=== PATIENT | male | born 1940 | race Caucasian/White ===

== ENCOUNTER 2017-07-10 15:59 | Inpatient (IN) | payer OTHER ==
[~2017-07-10] VITALS: Ht 182.9 cm; Wt 99.3 kg
[2017-07-10] MEDS ORDERED: SODIUM CHLORIDE 0.9% 1,000 ML IV ONE ×2 (16:06→16:15)
[2017-07-10] MEDS ORDERED: PANTOPRAZOLE 80 MG in SODIUM CHL 0.9% 60 ML IV ONE (16:15)
[2017-07-10 17:32] LABS: Basophils # (auto) 0 uL; Basophils % (auto) 0.2 % (0.0-2.0); Eosinophils # (auto) 0 uL; Eosinophils % (auto) 0.4 % (0.0-7.0); Hematocrit 41.9 % (41.0-53.0); Hemoglobin 13.7 g/dL (13.5-17.5); Lymphocytes # (auto) 0.5 uL; Lymphocytes % (auto) 9.5 % (10.0-50.0); Mean Corpuscular Hemoglobin 30.8 pg (28.0-32.0); Mean Corpuscular Hgb Conc. 32.6 g/dL (32.0-36.0); Mean Corpuscular Volume 94.4 fL (80.0-100.0); Mean Platelet Volume 7.5 fL (6.9-10.8); Monocytes # (auto) 0.4 uL; Monocytes % (auto) 7.9 % (0.0-12.0); Neutrophils # (auto) 4.6 uL; Platelet Count (auto) 197 10^3/uL (140-450); Red Cell Distribution Width 17.7 % (11.8-14.3); White Blood Cell 5.6 10^3/uL (4.4-10.8)
[2017-07-10 17:45] LABS: INR 1.12 (0.9-1.15); Partial Thromboplastin Time 25.4 sec (22.64-33.71); Prothrombin Time 12.2 sec (9.37-12.3)
[2017-07-10 17:52] LABS: Albumin 2.4 g/dL (3.4-5.0); Alkaline Phosphatase 57 U/L (45-117); Anion Gap 8 (5-15); Aspartate Aminotransferase 14 U/L (15-37); BUN/Creatinine Ratio 37.1; Bilirubin, Total 0.7 mg/dL (0.2-1.0); Blood Urea Nitrogen 43 mg/dL (7-18); Carbon Dioxide 26 mmol/L (21-32); Chloride 107 mmol/L (98-107); GFR African American 79 mL/min; GFR Non-African American 65 mL/min; Glucose 110 mg/dL (74-106); Potassium 3.8 mmol/L (3.5-5.1); Sodium 141 mmol/L (136-145); Total Protein 5.7 g/dL (6.4-8.2)
[2017-07-10] MEDS ORDERED: PANTOPRAZOLE 40 MG/10 ML VIAL IV ONE (18:00)
[2017-07-10] MEDS ORDERED: LORazepam 2MG/ML-1ML VIAL IV PRN (18:00)
[2017-07-10] MEDS ORDERED: NITROGLYCERIN 0.4 MG SL TAB SL PRN (18:00)
[2017-07-10] MEDS ORDERED: MORPHINE SULF INJ 2 MG/ML SYRINGE 1ML IV PRN ×3 (18:00)
[2017-07-10] MEDS ORDERED: THIAMINE HCL 100 MG/ML 2ML VIAL IV ONE (18:00)
[2017-07-10] MEDS ORDERED: IOHEXOL 300 MG/ML 100ML BOTTLE IJ ONE (18:01)
[2017-07-10] MEDS ORDERED: LEVOFLOXACIN 500MG 100 ML IV ONE (18:15)
[2017-07-10 18:39] LABS: B-Type Natriuretic Peptide 34.9 pg/mL (0-100); Temperature: 22.7 C (20.0-25.0)
[2017-07-10 18:49] LABS: Hemoglobin 8.3 g/dL (13.5-17.5)
[2017-07-10] MEDS: SODIUM CHLORIDE 0.9% 1,000 ML IV SCH (22:34)
[2017-07-10] MEDS: metroNIDAZOLE 500MG/100ML 100 ML IV SCH (22:34)
[2017-07-11] VITALS (12 sets, daily range): BP systolic 87–141; BP diastolic 40–81
[2017-07-11 00:45] LABS: Hematocrit 25.8 % (41.0-53.0); Hemoglobin 8.5 g/dL (13.5-17.5)
[2017-07-11] MEDS: SODIUM CHLORIDE 0.9% 1,000 ML IV SCH ×4 (03:31→22:42)
[2017-07-11] MEDS: metroNIDAZOLE 500MG/100ML 100 ML IV SCH ×3 (05:52→22:10)
[2017-07-11] MEDS: PROMETHAZINE HCL 25 MG/ML 1ML IV PRN (06:40)
[2017-07-11 06:41] LABS: Hematocrit 21.3 % (41.0-53.0); Hemoglobin 7.1 g/dL (13.5-17.5)
[2017-07-11] MEDS ORDERED: PANTOPRAZOLE 40 MG/10 ML VIAL IV SCH (10:00)
[2017-07-11] MEDS ORDERED: OCTREOTIDE ACETATE 500 MCG in SODIUM CHL 0.9% 99 ML IV SCH (10:15)
[2017-07-11] MEDS: PANTOPRAZOLE 40 MG/10 ML VIAL IV SCH ×2 (10:35→22:10)
[2017-07-11] MEDS: THIAMINE HCL 100 MG/ML 2ML VIAL IV SCH (10:35)
[2017-07-11] MEDS: LEVOFLOXACIN 500MG 100 ML IV SCH (10:56)
[2017-07-11] MEDS ORDERED: SODIUM CHLORIDE LOCK 10 ML ONE (11:30)
[2017-07-11] MEDS ORDERED: fentaNYL CITRATE 100 MCG/2 ML VL ONE (11:31)
[2017-07-11] MEDS ORDERED: diphenhdrAMINE HCL 50 MG/1 ML VL ONE (11:31)
[2017-07-11] MEDS ORDERED: MIDAZOLAM HCL 5 MG/ML-1ML VIAL ONE (11:31)
[2017-07-11] MEDS ORDERED: fentaNYL CITRATE 100 MCG/2 ML VL IV ONE ×2 (15:18→15:24)
[2017-07-11] MEDS ORDERED: MIDAZOLAM HCL 5 MG/ML-1ML VIAL IV ONE ×2 (15:18→15:24)
[2017-07-11] MEDS ORDERED: diphenhdrAMINE HCL 50 MG/1 ML VL IV ONE (15:18)
[2017-07-11 17:45] LABS: Basophils # (auto) 0.1 uL; Basophils % (auto) 0.9 % (0.0-2.0); Eosinophils # (auto) 0 uL; Eosinophils % (auto) 0.6 % (0.0-7.0); Hematocrit 30.7 % (41.0-53.0); Hemoglobin 10.4 g/dL (13.5-17.5); Lymphocytes # (auto) 0.7 uL; Mean Corpuscular Hemoglobin 30.7 pg (28.0-32.0); Mean Corpuscular Hgb Conc. 33.9 g/dL (32.0-36.0); Mean Corpuscular Volume 90.5 fL (80.0-100.0); Mean Platelet Volume 7.3 fL (6.9-10.8); Monocytes # (auto) 0.6 uL; Monocytes % (auto) 8.5 % (0.0-12.0); Neutrophils # (auto) 5.8 uL; Nucleated Red Blood Cells % 0.1 %; Platelet Count (auto) 179 10^3/uL (140-450); Red Cell Distribution Width 17.8 % (11.8-14.3); White Blood Cell 7.3 10^3/uL (4.4-10.8)
[2017-07-11 18:01] LABS: Albumin 2.3 g/dL (3.4-5.0); BUN/Creatinine Ratio 25.9; Calcium 7.8 mg/dL (8.5-10.1); Potassium 4.8 mmol/L (3.5-5.1)
[2017-07-11 18:04] LABS: Bilirubin, Total 2.8 mg/dL (0.2-1.0); Total Protein 5.2 g/dL (6.4-8.2)
[2017-07-11 21:55] LABS: Urine Bilirubin Negative (Negative); Urine Blood 2+ /uL (Negative); Urine Color PINK (Yellow); Urine Glucose Normal (Normal); Urine Ketone 1+ (Negative); Urine Mucus FEW (None Seen); Urine Nitrite Negative (Negative); Urine RBC 98 /hpf (0 - 3); Urine Squamous Epithelial Cell FEW /hpf (<5); Urine Urobilinogen Normal (Negative); Urine pH 5.5 (5.0-8.0)
[2017-07-11] MEDS: TEMAZEPAM 15 MG CAP PO PRN (23:00)
[2017-07-12 01:10] LABS: Hematocrit 26.1 % (41.0-53.0); Hemoglobin 8.7 g/dL (13.5-17.5)
[2017-07-12 05:03] LABS: Basophils # (auto) 0 uL; Basophils % (auto) 0.9 % (0.0-2.0); Eosinophils # (auto) 0.2 uL; Eosinophils % (auto) 3.3 % (0.0-7.0); Hematocrit 25.4 % (41.0-53.0); Hemoglobin 8.8 g/dL (13.5-17.5); Lymphocytes # (auto) 1.1 uL; Lymphocytes % (auto) 20.2 % (10.0-50.0); Mean Corpuscular Hemoglobin 30.8 pg (28.0-32.0); Mean Corpuscular Hgb Conc. 34.5 g/dL (32.0-36.0); Mean Corpuscular Volume 89.3 fL (80.0-100.0); Mean Platelet Volume 7.4 fL (6.9-10.8); Monocytes # (auto) 0.5 uL; Monocytes % (auto) 10.1 % (0.0-12.0); Neutrophils # (auto) 3.5 uL; Neutrophils % (auto) 65.5 % (37.0-80.0); Nucleated Red Blood Cells % 0.1 %; Platelet Count (auto) 157 10^3/uL (140-450); Red Cell Distribution Width 18.4 % (11.8-14.3); White Blood Cell 5.4 10^3/uL (4.4-10.8)
[2017-07-12 05:16] LABS: INR 1.19 (0.9-1.15); Partial Thromboplastin Time 28.6 sec (22.64-33.71)
[2017-07-12 05:22] LABS: Albumin 2.2 g/dL (3.4-5.0); BUN/Creatinine Ratio 25.8; Bilirubin, Total 1.5 mg/dL (0.2-1.0); Calcium 7.6 mg/dL (8.5-10.1); Potassium 3.9 mmol/L (3.5-5.1); Total Protein 4.6 g/dL (6.4-8.2)
[2017-07-12] MEDS: metroNIDAZOLE 500MG/100ML 100 ML IV SCH ×3 (05:56→22:17)
[2017-07-12] MEDS: LEVOFLOXACIN 500MG 100 ML IV SCH (09:26)
[2017-07-12] MEDS: THIAMINE HCL 100 MG/ML 2ML VIAL IV SCH (09:32)
[2017-07-12] MEDS: PANTOPRAZOLE 40 MG/10 ML VIAL IV SCH ×2 (11:00→22:17)
[2017-07-12] MEDS: SODIUM CHLORIDE 0.9% 1,000 ML IV SCH (14:07)
[2017-07-12] MEDS: PROMETHAZINE HCL 25 MG/ML 1ML IV PRN (20:28)
[2017-07-12] MEDS: TEMAZEPAM 15 MG CAP PO PRN (23:12)
[2017-07-12] MEDS ORDERED: NOREPINEPHRINE 8 MG/250ML KIT 250 ML IV ONE (23:20)
[2017-07-12] MEDS: NOREPINEPHRINE 8 MG/250ML KIT 250 ML IV SCH (23:52)
[2017-07-13] VITALS (10 sets, daily range): BP systolic 95–123; BP diastolic 55–75
[2017-07-13] MEDS: SODIUM CHLORIDE 0.9% 1,000 ML IV SCH ×4 (00:33→19:00)
[2017-07-13] MEDS: metroNIDAZOLE 500MG/100ML 100 ML IV SCH ×3 (05:34→22:05)
[2017-07-13 08:19] LABS: Eosinophils # (auto) 0.2 uL; Monocytes # (auto) 0.8 uL; White Blood Cell 8.1 10^3/uL (4.4-10.8)
[2017-07-13 08:21] LABS: Basophils # (auto) 0.1 uL; Basophils % (auto) 0.8 % (0.0-2.0); Hematocrit 18.5 % (41.0-53.0); Lymphocytes % (auto) 12.6 % (10.0-50.0); Mean Corpuscular Hgb Conc. 34.6 g/dL (32.0-36.0); Mean Corpuscular Volume 92.5 fL (80.0-100.0); Mean Platelet Volume 7.2 fL (6.9-10.8); Monocytes % (auto) 10.4 % (0.0-12.0); Neutrophils % (auto) 74.2 % (37.0-80.0); Nucleated Red Blood Cells % 0.1 %; Platelet Count (auto) 196 10^3/uL (140-450); Red Cell Distribution Width 17.8 % (11.8-14.3)
[2017-07-13 08:24] LABS: Hemoglobin 6.4 g/dL (13.5-17.5)
[2017-07-13 08:28] LABS: BUN/Creatinine Ratio 21.2; Calcium 7.1 mg/dL (8.5-10.1); Potassium 4.1 mmol/L (3.5-5.1)
[2017-07-13 08:30] LABS: INR 1.19 (0.9-1.15)
[2017-07-13] MEDS: LEVOFLOXACIN 500MG 100 ML IV SCH (09:32)
[2017-07-13] MEDS: THIAMINE HCL 100 MG/ML 2ML VIAL IV SCH (09:32)
[2017-07-13] MEDS: PANTOPRAZOLE 40 MG/10 ML VIAL IV SCH ×2 (09:32→22:05)
[2017-07-13] MEDS: PROMETHAZINE HCL 25 MG/ML 1ML IV PRN (15:28)
[2017-07-13] MEDS ORDERED: FUROSEMIDE 20 MG/2 ML VIAL IV ONE (15:30)
[2017-07-13 16:54] LABS: Hemoglobin 7.8 g/dL (13.5-17.5)
[2017-07-13 16:56] LABS: Hematocrit 22.8 % (41.0-53.0)
[2017-07-13] MEDS: TEMAZEPAM 15 MG CAP PO PRN (20:50)
[2017-07-13] MEDS: NOREPINEPHRINE 8 MG/250ML KIT 250 ML IV SCH (23:30)
[2017-07-14] VITALS (9 sets, daily range): BP systolic 121–154; BP diastolic 45–79
[2017-07-14] MEDS: SODIUM CHLORIDE 0.9% 1,000 ML IV SCH ×2 (02:11→11:01)
[2017-07-14] MEDS: metroNIDAZOLE 500MG/100ML 100 ML IV SCH ×2 (06:10→11:17)
[2017-07-14 06:32] LABS: Hematocrit 27.1 % (41.0-53.0); Hemoglobin 9.3 g/dL (13.5-17.5); Mean Corpuscular Hemoglobin 31.2 pg (28.0-32.0); Mean Corpuscular Hgb Conc. 34.2 g/dL (32.0-36.0); Mean Corpuscular Volume 91.2 fL (80.0-100.0); Mean Platelet Volume 7.5 fL (6.9-10.8); Platelet Count (auto) 150 10^3/uL (140-450); Red Cell Distribution Width 16.1 % (11.8-14.3)
[2017-07-14 06:42] LABS: Metamyelocytes % 0; Myelocytes % 0; Promyelocytes % 0; Reactive Lymphocytes 0
[2017-07-14 06:49] LABS: BUN/Creatinine Ratio 12.9; Calcium 7.2 mg/dL (8.5-10.1); Potassium 3.3 mmol/L (3.5-5.1)
[2017-07-14 07:32] LABS: Platelet Estimate Adequate
[2017-07-14 07:35] LABS: Ovalocytes FEW; Polychromasia Slight
[2017-07-14] MEDS: LEVOFLOXACIN 500MG 100 ML IV SCH (11:17)
[2017-07-14] MEDS: THIAMINE HCL 100 MG/ML 2ML VIAL IV SCH (11:17)
[2017-07-14] MEDS: PANTOPRAZOLE 40 MG/10 ML VIAL IV SCH ×2 (11:17→22:00)
[2017-07-14] MEDS ORDERED: GOLYTELY 4L KIT PO ONE (12:00)
[2017-07-14 12:18] LABS: Hematocrit 24.5 % (41.0-53.0); Hemoglobin 8.4 g/dL (13.5-17.5)
[2017-07-14] MEDS ORDERED: SODIUM CHLORIDE 0.9% 1,000 ML IV SCH (12:45)
[2017-07-15] MEDS ORDERED: GOLYTELY 4L KIT PO ONE (06:00)
== END 2017-07-14 22:20 | disposition short-term general hospital (02) | DRG 377 ==
LOC: ER 15:59 → TELE 16:00 → TELE-WESTW 07-14 17:45
PROVIDERS: ADMIT Internal Medicine; ATTEND Internal Medicine
PROC: 02HV33Z Insertion of Infusion Device into Superior Vena Cava, Percutaneous Approach (ICD-10-PCS; principal; 2017-07-10)
PROC: 0DJ08ZZ Inspection of Upper Intestinal Tract, Via Natural or Artificial Opening Endoscopic (ICD-10-PCS; 2017-07-11)
PROC: 30233N1 Transfusion of Nonautologous Red Blood Cells into Peripheral Vein, Percutaneous Approach (ICD-10-PCS; 2017-07-11)
DX: K28.4 Chronic or unspecified gastrojejunal ulcer with hemorrhage (principal); E43 Unspecified severe protein-calorie malnutrition; D62 Acute posthemorrhagic anemia; Z68.41 Body mass index [BMI] 40.0-44.9, adult; E66.01 Morbid (severe) obesity due to excess calories; N18.3 Chronic kidney disease, stage 3 (moderate); F10.20 Alcohol dependence, uncomplicated; F41.9 Anxiety disorder, unspecified; Z66 Do not resuscitate; Y83.2 Surgical operation with anastomosis, bypass or graft as the cause of abnormal reaction of the patient, or of later complication, without mention of misadventure at the time of the procedure; Y73.1 Therapeutic (nonsurgical) and rehabilitative gastroenterology and urology devices associated with adverse incidents; Z98.84 Bariatric surgery status; Z68.29 Body mass index [BMI] 29.0-29.9, adult; Z90.49 Acquired absence of other specified parts of digestive tract; Y92.89 Other specified places as the place of occurrence of the external cause
CPT/HCPCS: 36415; 36556; 51702; 71010; 74000; 74177; 80048; 80053; 81001; 82378; 83605; 83880; 84484; 85007; 85014; 85018; 85025; 85027; 85045; 85379; 85610; 85652; 85730; 86141; 86677; 86850; 86900; 86901; 86920; 87040; 93005; 96365; 96367; 96375; C9113; J1956; J2250; J3490

== ENCOUNTER 2018-06-14 19:38 | Inpatient (IN) | payer OTHER ==
[~2018-06-14] VITALS: Ht 177.8 cm; Wt 113.4 kg
[2018-06-14 20:25] LABS: Mean Corpuscular Hemoglobin 18.3 pg (28.0-32.0); Mean Corpuscular Hgb Conc. 28.4 g/dL (32.0-36.0); Mean Corpuscular Volume 64.5 fL (80.0-100.0); Platelet Count (auto) 164 10^3/uL (140-450); Red Blood Cells 4.35 10^6/uL (4.5-5.90); White Blood Cell 6.9 10^3/uL (4.4-10.8)
[2018-06-14 20:26] LABS: Red Cell Distribution Width 22.3 % (11.8-14.3)
[2018-06-14 20:27] LABS: Band Neutrophils % (manual) 0; Basophils % (manual) 0 (0.0-2.0); Blast Cells 0; Metamyelocytes % 0; Myelocytes % 0; Promyelocytes % 0; Reactive Lymphocytes 0
[2018-06-14] MEDS ORDERED: SODIUM CHLORIDE 0.9% 1,000 ML IV ONE (20:36)
[2018-06-14 20:37] LABS: Albumin 3.4 g/dL (3.4-5.0); BUN/Creatinine Ratio 9.1; Magnesium 1.5 mg/dL (1.6-2.6)
[2018-06-14 20:42] LABS: Bilirubin, Total 2.8 mg/dL (0.2-1.0); Total Protein 6.6 g/dL (6.4-8.2)
[2018-06-14] MEDS ORDERED: PANTOPRAZOLE 80 MG in SODIUM CHL 0.9% 60 ML IV ONE (20:45)
[2018-06-14] MEDS ORDERED: PANTOPRAZOLE 40 MG/10 ML VIAL IV ONE ×2 (20:45→22:18)
[2018-06-14] MEDS ORDERED: LORazepam 2MG/ML-1ML VIAL IV ONE (20:45)
[2018-06-14 21:40] LABS: INR 1.14 (0.9-1.15); Partial Thromboplastin Time 27.1 sec (23.78-33.04); Prothrombin Time 12.1 sec (9.27-12.13)
[2018-06-14 23:02] LABS: Eosinophils % (manual) 2 (0-7); Lymphocytes % (manual) 13 (10.0-50.0); Monocytes % (manual) 5 (0-12)
[2018-06-15] MEDS ORDERED: NITROGLYCERIN 0.4 MG SL TAB SL PRN (00:45)
[2018-06-15] MEDS ORDERED: POTASSIUM CHL 20 Meq TABLET PO ONE (00:45)
[2018-06-15] MEDS ORDERED: MORPHINE SULFATE 4 MG/ML SYR/VIAL IV PRN (00:45)
[2018-06-15] MEDS ORDERED: ONDANSETRON HCL 4 MG/2 ML VIAL IV PRN (00:45)
[2018-06-15 01:24] LABS: Hematocrit 27.4 % (41.0-53.0)
[2018-06-15 01:29] LABS: Hemoglobin 7.6 g/dL (13.5-17.5)
[2018-06-15] MEDS: MAGNESIUM SULFATE 1GM/100ML 100 ML IV SCH ×2 (01:32→02:44)
[2018-06-15] MEDS: SODIUM CHLORIDE 0.9% 1,000 ML IV SCH ×3 (01:33→23:06)
[2018-06-15] MEDS: PANTOPRAZOLE 80 MG in SODIUM CHL 0.9% 60 ML IV SCH ×2 (04:30→13:46)
[2018-06-15] MEDS ORDERED: PANTOPRAZOLE 40 MG/10 ML VIAL IV ONE (04:53)
[2018-06-15] MEDS ORDERED: LIDOCAINE 2% JELLY 11ml (GLYDO) UR ONE (10:00)
[2018-06-15] MEDS ORDERED: PANTOPRAZOLE 40 MG/10 ML VIAL IV SCH (10:00)
[2018-06-15 11:31] LABS: Hematocrit 24.7 % (41.0-53.0)
[2018-06-15 11:40] LABS: Hemoglobin 6.7 g/dL (13.5-17.5)
[2018-06-15 12:39] VITALS: BP 138/84
[2018-06-15 13:03] VITALS: BP 136/84
[2018-06-15 13:20] VITALS: BP 145/78
[2018-06-15] MEDS ORDERED: OCTREOTIDE ACETATE 100 MCG in SODIUM CHL 0.9% 50 ML IV ONE (16:15)
[2018-06-15 16:45] VITALS: BP 140/108
[2018-06-15 17:00] VITALS: BP 155/85
[2018-06-15 17:15] VITALS: BP 101/32
[2018-06-15] MEDS: OCTREOTIDE ACETATE 500 MCG in SODIUM CHL 0.9% 99 ML IV SCH (17:24)
[2018-06-15 20:21] LABS: Basophils # (auto) 0.1 uL; Eosinophils # (auto) 0.2 uL; Monocytes # (auto) 0.7 uL
[2018-06-15 20:23] LABS: Basophils % (auto) 1.7 % (0.0-2.0); Eosinophils % (auto) 3.8 % (0.0-7.0); Hematocrit 31.5 % (41.0-53.0); Hemoglobin 9.1 g/dL (13.5-17.5); Lymphocytes % (auto) 16.9 % (10.0-50.0); Mean Corpuscular Hgb Conc. 28.8 g/dL (32.0-36.0); Mean Corpuscular Volume 69.3 fL (80.0-100.0); Monocytes % (auto) 11.7 % (0.0-12.0); Neutrophils # (auto) 4.1 uL; Neutrophils % (auto) 65.9 % (37.0-80.0); Nucleated Red Blood Cells % 0.6 %; Platelet Count (auto) 172 10^3/uL (140-450); Red Blood Cells 4.54 10^6/uL (4.5-5.90); White Blood Cell 6.1 10^3/uL (4.4-10.8)
[2018-06-15 20:33] LABS: Red Cell Distribution Width 25.4 % (11.8-14.3)
[2018-06-15] MEDS ORDERED: chlordiazePOXIDE HCL 25 MG CAP PO PRN (21:45)
[2018-06-15] MEDS: PANTOPRAZOLE 40 MG/10 ML VIAL IV SCH (22:50)
[2018-06-15] MEDS: LORazepam 2MG/ML-1ML VIAL IV PRN (23:06)
[2018-06-16] MEDS ORDERED: ALBUTEROL SULF 2.5 MG/0.5ML(0.5%) NEB SOLN ONE (00:22)
[2018-06-16] MEDS ORDERED: IPRATROPIUM BROM 0.5 MG/2.5ML INH SOL ONE (00:26)
[2018-06-16] MEDS: IPRATROPIUM BROM 0.5 MG/2.5ML INH SOL NEB PRN ×2 (00:28→02:59)
[2018-06-16] MEDS: ALBUTEROL SULF 2.5 MG/0.5ML(0.5%) NEB SOLN NEB SCH ×2 (00:28→02:59)
[2018-06-16] MEDS ORDERED: LORazepam 2MG/ML-1ML VIAL IV ONE (01:00)
[2018-06-16] MEDS ORDERED: HALOPERIDOL LACTATE 5 MG/ML INJ VIAL IM ONE (01:00)
[2018-06-16] MEDS ORDERED: diphenhdrAMINE HCL 25 MG CAP PO ONE (01:00)
[2018-06-16] MEDS ORDERED: methylPREDNISolone SOD SUCC 125 MG/2 ML VL IV ONE (01:00)
[2018-06-16 02:03] VITALS: BP 130/92
[2018-06-16] MEDS: OCTREOTIDE ACETATE 500 MCG in SODIUM CHL 0.9% 99 ML IV SCH ×2 (02:03→12:44)
[2018-06-16] MEDS: IPRATROPIUM BROM 0.5 MG/2.5ML INH SOL NEB SCH ×4 (06:00→19:16)
[2018-06-16 07:52] LABS: Hemoglobin 8.5 g/dL (13.5-17.5); White Blood Cell 5.7 10^3/uL (4.4-10.8)
[2018-06-16 07:54] LABS: Hematocrit 29.9 % (41.0-53.0); Mean Corpuscular Hemoglobin 20.1 pg (28.0-32.0); Mean Corpuscular Hgb Conc. 28.6 g/dL (32.0-36.0); Mean Corpuscular Volume 70.3 fL (80.0-100.0); Platelet Count (auto) 141 10^3/uL (140-450); Red Blood Cells 4.25 10^6/uL (4.5-5.90)
[2018-06-16 08:00] LABS: Red Cell Distribution Width 24.5 % (11.8-14.3)
[2018-06-16 08:01] LABS: Basophils % (manual) 0 (0.0-2.0); Blast Cells 0; Myelocytes % 0; Promyelocytes % 0; Reactive Lymphocytes 0
[2018-06-16 08:09] LABS: Band Neutrophils % (manual) 2; Eosinophils % (manual) 2 (0-7); Lymphocytes % (manual) 5 (10.0-50.0); Metamyelocytes % 1; Monocytes % (manual) 1 (0-12)
[2018-06-16 08:12] LABS: Albumin 3.2 g/dL (3.4-5.0); Calcium 7.5 mg/dL (8.5-10.1); Potassium 3.9 mmol/L (3.5-5.1)
[2018-06-16 08:15] LABS: Bilirubin, Total 2.4 mg/dL (0.2-1.0); Total Protein 6.5 g/dL (6.4-8.2)
[2018-06-16] MEDS: LORazepam 2MG/ML-1ML VIAL IV PRN (09:27)
[2018-06-16 09:29] LABS: Urine Bacteria FEW /hpf (None Seen); Urine Blood 3+ /uL (Negative); Urine Mucus FEW (None Seen); Urine Specific Gravity 1.026 (1.001-1.035); Urine WBC 23 /hpf (0 - 3)
[2018-06-16] MEDS: SODIUM CHLORIDE 0.9% 1,000 ML IV SCH (10:13)
[2018-06-16] MEDS: PANTOPRAZOLE 40 MG/10 ML VIAL IV SCH (10:36)
[2018-06-16] MEDS: ALBUTEROL SULF 2.5 MG/0.5ML(0.5%) NEB SOLN NEB PRN ×2 (11:32→19:16)
[2018-06-16 19:37] VITALS: BP 108/41
== END 2018-06-16 19:38 | disposition short-term general hospital (02) | DRG 378 ==
LOC: EDBD 19:38 → ER 19:38 → OVERFLOW 19:39
PROVIDERS: ADMIT Nurse Practitioner; ATTEND Internal Medicine
PROC: 30233N1 Transfusion of Nonautologous Red Blood Cells into Peripheral Vein, Percutaneous Approach (ICD-10-PCS; principal; 2018-06-15)
DX: K27.4 Chronic or unspecified peptic ulcer, site unspecified, with hemorrhage (principal); D62 Acute posthemorrhagic anemia; K70.30 Alcoholic cirrhosis of liver without ascites; E87.8 Other disorders of electrolyte and fluid balance, not elsewhere classified; F10.10 Alcohol abuse, uncomplicated; F41.9 Anxiety disorder, unspecified; I10 Essential (primary) hypertension; I70.0 Atherosclerosis of aorta; J44.9 Chronic obstructive pulmonary disease, unspecified; Z98.84 Bariatric surgery status; K40.90 Unilateral inguinal hernia, without obstruction or gangrene, not specified as recurrent; N40.0 Benign prostatic hyperplasia without lower urinary tract symptoms; Z90.49 Acquired absence of other specified parts of digestive tract; E66.01 Morbid (severe) obesity due to excess calories; Z68.35 Body mass index [BMI] 35.0-35.9, adult
CPT/HCPCS: 36415; 36600; 71045; 74176; 80053; 80320; 81001; 82270; 82805; 83735; 84484; 85007; 85014; 85018; 85025; 85027; 85610; 85730; 86850; 86900; 86901; 86920; 87493; 93005; 93306; 93970; 94640; 94761; 96361; 96365; 96375; C9113; G0378

== ENCOUNTER 2018-07-10 12:28 | Emergency (ER) | payer OTHER ==
[~2018-07-10] VITALS: Ht 172.7 cm; Wt 136.1 kg
[2018-07-10 14:42] LABS: INR 1.15 (0.9-1.15); Partial Thromboplastin Time 32.9 sec (23.78-33.04); Prothrombin Time 12.2 sec (9.27-12.13)
[2018-07-10 14:49] LABS: Blood Urea Nitrogen 25 mg/dL (7-18); Calcium 8.8 mg/dL (8.5-10.1); Chloride 114 mmol/L (98-107); Potassium 3.8 mmol/L (3.5-5.1); Sodium 146 mmol/L (136-145)
[2018-07-10 14:58] LABS: Alanine Aminotransferase 44 U/L (16-61); Albumin 2.7 g/dL (3.4-5.0); Alkaline Phosphatase 128 U/L (45-117); Anion Gap 10 (5-15); Aspartate Aminotransferase 51 U/L (15-37); BUN/Creatinine Ratio 17.7; Bilirubin, Total 1.5 mg/dL (0.2-1.0); Carbon Dioxide 22 mmol/L (21-32); GFR African American 63 mL/min; GFR Non-African American 52 mL/min; Glucose 116 mg/dL (74-106); Total Protein 7.2 g/dL (6.4-8.2)
[2018-07-10 16:11] LABS: Eosinophils # (auto) 0.2 uL; Hemoglobin 10.1 g/dL (13.5-17.5); Mean Corpuscular Hgb Conc. 28.5 g/dL (32.0-36.0); Monocytes # (auto) 0.5 uL; Nucleated Red Blood Cells % 0.1 %
[2018-07-10 16:13] LABS: Basophils # (auto) 0 uL; Basophils % (auto) 0.6 % (0.0-2.0); Eosinophils % (auto) 3.2 % (0.0-7.0); Lymphocytes # (auto) 0.7 uL; Lymphocytes % (auto) 9.2 % (10.0-50.0); Mean Corpuscular Hemoglobin 20.9 pg (28.0-32.0); Mean Corpuscular Volume 73.2 fL (80.0-100.0); Monocytes % (auto) 6.8 % (0.0-12.0); Neutrophils # (auto) 5.9 uL; Neutrophils % (auto) 80.2 % (37.0-80.0); Platelet Count (auto) 211 10^3/uL (140-450); Red Blood Cells 4.83 10^6/uL (4.5-5.90); White Blood Cell 7.3 10^3/uL (4.4-10.8)
[2018-07-10 16:20] LABS: Hematocrit 33.9 % (41.0-53.0); Red Cell Distribution Width 26.1 % (11.8-14.3)
[2018-07-10] MEDS ORDERED: HYDROcodone-ACET 10/325MG TAB PO ONE (18:30)
[2018-07-10 22:18] VITALS: BP 151/51
== END 2018-07-10 22:45 | disposition short-term general hospital (02) ==
LOC: EDBD 12:28 → ER 12:28
DX: E87.0 Hyperosmolality and hypernatremia (principal); D64.9 Anemia, unspecified; I10 Essential (primary) hypertension; Z90.49 Acquired absence of other specified parts of digestive tract
CPT/HCPCS: 36415; 71045; 80053; 83880; 84484; 85025; 85610; 85730